=== PATIENT | female | born 1980 | race Caucasian/White ===

== ENCOUNTER 2019-10-15 11:31 | Outpatient (CLI) | payer OTHER ==
--- NOTE | 2019-10-15 11:47 | RAD ---
XR Foot Lt 3 View STANDARD INDICATION: 39-year-old female with left foot pain COMPARISON: None. FINDINGS: Bones: There is a mildly displaced fracture involving the left fourth digit proximal phalangeal shaft . There is a bifid tibial great toe sesamoid. Joints: Joints spaces appear preserved. Lisfranc alignment: Lisfranc alignment appears within normal limits. Soft tissues: No soft tissue injury demonstrated. No radiographic foreign body demonstrated. IMPRESSION: Fourth digit proximal phalangeal shaft fracture
== END 2019-10-15 11:32 | disposition home or self-care (01) ==
LOC: RAD-FRANK 11:31
PROVIDERS: ATTEND Internal Medicine
DX: S99.922A Unspecified injury of left foot, initial encounter (principal); S92.512A Displaced fracture of proximal phalanx of left lesser toe(s), initial encounter for closed fracture

== ENCOUNTER 2023-04-23 13:27 | Emergency (ER) | payer OTHER ==
[2023-04-23 15:47] LABS: Bacteria/HPF 3+ HPF (None Seen); Bilirubin Negative (Negative); Blood, Urine Negative (Negative); CAUTI Indications for Culture Pelvic or flank pain; Clarity Clear (Clear); Glucose, Urine (Dipstick) Normal (Negative); Ketone, Urine Negative (Negative); Leukocyte 250 Leu/uL (Negative); Nitrite 2+ (Negative); Protein, Urine (Dipstick) Negative (Neg-Trace); RBC/HPF 0-3 HPF (0-3); Specific Gravity, Urine 1.017 (1.002-1.036); Urobilinogen Normal mg/dL (Less than 2); WBC/HPF 21-50 HPF (0-3)
[2023-04-23 15:56] LABS: Urine Culture Reflex Yes Yes
[2023-04-23] MEDS ORDERED: Ketorolac Tromethamine 30 MG/ML VIAL ONE (15:56)
[2023-04-23] MEDS ORDERED: Dexameth. Sod Phosp. 10 MG/ML (CHEMO USE ONLY) ONE (15:56)
== END 2023-04-23 17:04 | disposition home or self-care (01) ==
LOC: ERS 13:27
DX: S39.012A Strain of muscle, fascia and tendon of lower back, initial encounter (principal); N39.0 Urinary tract infection, site not specified; F17.210 Nicotine dependence, cigarettes, uncomplicated; X50.1XXA Overexertion from prolonged static or awkward postures, initial encounter
CPT/HCPCS: 81001; 87077; 87086; 87186; 96372; 96374; J1100; J1885

== ENCOUNTER 2023-04-27 18:27 | Emergency (ER) | payer OTHER ==
[2023-04-27] MEDS ORDERED: Ketorolac Tromethamine 30 MG/ML VIAL ONE (19:05)
[2023-04-27 19:23] LABS: Amphetamine Detected (NotDetected); Barbiturates Screen Not Detected (NotDetected); Benzodiazepine Screen Not Detected (NotDetected); Bilirubin Negative (Negative); Blood, Urine 3+ (Negative); CAUTI Indications for Culture Pelvic or flank pain; Clarity Clear (Clear); Cocaine Metabolite Screen Detected (NotDetected); Glucose, Urine (Dipstick) 50 mg/dL (Negative); Ketone, Urine Negative (Negative); Leukocyte 75 Leu/uL (Negative); Methadone Not Detected (NotDetected); Methamphetamine Detected (NotDetected); Mucous/LPF Rare LPF (<2+); Nitrite Negative (Negative); Opiate Screen Not Detected (NotDetected); Oxycodone Screen Not Detected (NotDetected); Phencyclidine (PCP) Not Detected (NotDetected); Protein, Urine (Dipstick) Negative (Neg-Trace); RBC/HPF 0-3 HPF (0-3); Specific Gravity, Urine 1.008 (1.002-1.036); Squamous Epithelial 0-3 HPF (0-3); THC/Cannabinoid Screen Detected (NotDetected); Tricyclic Screen Not Detected (NotDetected); Urobilinogen Normal mg/dL (Less than 2)
[2023-04-27 19:40] LABS: Bacteria/HPF 1+ HPF (None Seen)
[2023-04-27 19:41] LABS: Urine Culture Reflex No No
[2023-04-27 20:03] LABS: #Eosinphils 0.3 thou/uL (0.0-0.7); #Monocytes 0.7 thou/uL (0.11-0.59); #Neutrophils 4.5 thou/uL (1.40-6.50); %Basophils 0.4 % (0.0-1.0); %Eosinophils 3.9 % (0.0-10.0); %Neutrophils 61.4 % (42.0-75.0); Hematocrit 30.7 % (36.0-47.0); Hemoglobin 9.7 g/dL (12.0-16.0); Mean Corpuscular HGB CONC 31.6 g/dL (32.0-36.0); Mean Corpuscular Hemoglobin 24.1 pg (27.0-31.0); Mean Corpuscular Volume 76.2 fl (78.0-98.0); Mean Platelet Volume 10.7 fL (7.4-10.4); Platelet Count 213 10x3/uL (130-400); RBC Distribution Width 15.1 % (11.5-14.5); Red Blood Cell (RBC) Count 4.03 mill/uL (4.20-5.40); White Blood Cell (WBC) Count 7.3 10x3/uL (4.8-10.8)
[2023-04-27 20:25] LABS: ALT (SGPT) 16 U/L (8-55); AST (SGOT) 11 U/L (5-34); Alkaline Phosphatase 75 U/L (40-110); Anion Gap 14 mmol/L (10-20); BUN (Urea Nitrogen) 16 mg/dL (7.0-18.7); Bilirubin, Total 0.3 mg/dL (0.2-1.2); CK (CPK) 168 U/L (29-168); Calc. Creatinine Clearance 0 mL/min (70-130); Calcium 9.4 mg/dL (7.8-10.44); Carbon Dioxide 28 mmol/L (22-29); Chloride 97 mmol/L (98-107); Estimated GFR 63; Globulin 3.4 g/dL (2.4-3.5); Glucose 248 mg/dL (70-105); Potassium 3.6 mmol/L (3.5-5.1); Protein, Total 7.4 g/dL (6.0-8.3); Sodium 135 mmol/L (136-145)
== END 2023-04-27 20:33 | disposition home or self-care (01) ==
LOC: ERS 18:27
DX: R25.2 Cramp and spasm (principal); F14.10 Cocaine abuse, uncomplicated; F15.10 Other stimulant abuse, uncomplicated; F12.10 Cannabis abuse, uncomplicated
CPT/HCPCS: 36415; 80053; 80306; 81001; 82550; 85025; 96372; 99283; J1885

== ENCOUNTER 2023-08-27 14:12 | Inpatient (IN) | payer OTHER ==
[~2023-08-27 14:12] MED LIST: Iopamidol-370 76% 500 ML MDV (1 ML CHARGE) ONE
[2023-08-27] MEDS ORDERED: Acetaminophen 500 MG TAB ONE (14:50)
[2023-08-27 15:19] LABS: #Eosinphils 0.2 thou/uL (0.0-0.7); #Monocytes 0.8 thou/uL (0.11-0.59); #Neutrophils 10.8 thou/uL (1.40-6.50); %Basophils 0.3 % (0.0-1.0); %Eosinophils 1.5 % (0.0-10.0); %Lymphocytes 8.8 % (21.0-51.0); %Monocytes 5.8 % (0.0-10.0); Hematocrit 26.6 % (36.0-47.0); Mean Corpuscular HGB CONC 30.1 g/dL (32.0-36.0); Mean Corpuscular Hemoglobin 24.2 pg (27.0-31.0); Mean Corpuscular Volume 80.4 fl (78.0-98.0); Mean Platelet Volume 10.8 fL (7.4-10.4); Platelet Count 260 10x3/uL (130-400); Red Blood Cell (RBC) Count 3.31 mill/uL (4.20-5.40)
[2023-08-27 15:45] LABS: Troponin I Less than 0.010 ng/mL (< 0.028)
[2023-08-27 15:46] LABS: ALT (SGPT) 12 U/L (8-55); AST (SGOT) 14 U/L (5-34); Albumin 3.3 g/dL (3.5-5.0); Alkaline Phosphatase 95 U/L (40-110); Anion Gap 16 mmol/L (10-20); BUN (Urea Nitrogen) 11 mg/dL (7.0-18.7); Bilirubin, Total 0.3 mg/dL (0.2-1.2); Calc. Creatinine Clearance 0 mL/min (70-130); Calcium 8.2 mg/dL (7.8-10.44); Carbon Dioxide 19 mmol/L (22-29); Chloride 106 mmol/L (98-107); Estimated GFR 90; Globulin 2.9 g/dL (2.4-3.5); Glucose 300 mg/dL (70-105); Potassium 4.8 mmol/L (3.5-5.1); Protein, Total 6.2 g/dL (6.0-8.3); Sodium 136 mmol/L (136-145)
[2023-08-27 16:22] LABS: Actual Bicarbonate (HCO3v) 22.3 mEq/L (22-28); Base Excess -2.4 mEq/L (-2.0 to +3.0); Calcium, Ionized (venous) 1.04 mmol/L (1.16-1.32); Chloride (VBG) 104 mmol/L (98-106); Hematocrit-VBG 26 % (36.0-47.0); Hemoglobin (Hb) 8.8 g/dL (11.7-15.5); Potassium (VBG) 4.71 mmol/L (3.70-5.30); Sodium 135 mmol/L (133-146); pH (venous) 7.391 (7.32-7.43)
[2023-08-27] MEDS ORDERED: Ondansetron PF 4 MG/2 ML Vial ONE (16:49)
[2023-08-27] MEDS ORDERED: Morphine 4 MG/ML VIAL ONE (16:49)
[2023-08-27 16:52] LABS: BHCG - Serum Negative (NEGATIVE); Pregs Control Background? CLEAR/WHITE (CLR/WHITE); Pregs Control Bar Appear? YES (CONTROL BAR)
[2023-08-27] MEDS ORDERED: LORazepam 2 MG/ML SYR.(CARPUJECT) ONE ×2 (17:57→21:53)
[2023-08-27] MEDS ORDERED: fentaNYL 50 mcg/mL 1 mL Vial ONE (19:51)
[2023-08-27] MEDS ORDERED: Ketamine In 0.9 % NaCl 50 MG/5 ML SYRINGE ONE (22:35)
[2023-08-28 01:09] LABS: Acetaminophen Less than 10 mcg/mL (10.0-30.0); Alcohol Less than 10.0 mg/dL (Less than 10); Salicylate Less than 8.0 mg/dL (15.0-30.0)
[2023-08-28] MEDS: Lactated Ringer's 1,000 ML IV SCH ×2 (01:53→11:41)
[2023-08-28 03:55] VITALS: BMI 38.4
[2023-08-28] MEDS ORDERED: Ketamine In 0.9 % NaCl 50 MG/5 ML SYRINGE ONE (04:18)
[2023-08-28] MEDS ORDERED: Ondansetron PF 4 MG/2 ML Vial IVP PRN (06:17)
[2023-08-28] MEDS ORDERED: HumaLOG 300 UNITS/3 ML VIAL SC PRN ×2 (06:17→18:06)
[2023-08-28] MEDS ORDERED: Dextrose 50% Abboject 50 ML SYRINGE SLOW IVP PRN (06:17)
[2023-08-28] MEDS ORDERED: Morphine 2 MG/ML VIAL SLOW IVP PRN (06:17)
[2023-08-28] MEDS ORDERED: Glucagon 1 MG/ML KIT IM PRN (06:17)
[2023-08-28] MEDS ORDERED: Dextrose 5% in Water 1,000 ML IV PRN (06:17)
[2023-08-28] MEDS ORDERED: hydrALAZINE 20 MG/ML VIAL SLOW IVP PRN (06:17)
[2023-08-28] MEDS ORDERED: Ketorolac Tromethamine 30 MG (1 mL) VIAL IVP SCH (06:30)
[2023-08-28 06:40] LABS: #Eosinphils 0.2 thou/uL (0.0-0.7); #Monocytes 0.6 thou/uL (0.11-0.59); #Neutrophils 6.4 thou/uL (1.40-6.50); %Basophils 0.2 % (0.0-1.0); %Eosinophils 1.9 % (0.0-10.0); %Lymphocytes 12.9 % (21.0-51.0); %Monocytes 7.7 % (0.0-10.0); %Neutrophils 76.9 % (42.0-75.0); Hematocrit 21.6 % (36.0-47.0); Hemoglobin 6.6 g/dL (12.0-16.0); Mean Corpuscular HGB CONC 30.6 g/dL (32.0-36.0); Mean Corpuscular Hemoglobin 24.1 pg (27.0-31.0); Mean Corpuscular Volume 78.8 fl (78.0-98.0); Mean Platelet Volume 10.1 fL (7.4-10.4); Platelet Count 199 10x3/uL (130-400); RBC Distribution Width 15.5 % (11.5-14.5); Red Blood Cell (RBC) Count 2.74 mill/uL (4.20-5.40); White Blood Cell (WBC) Count 8.3 10x3/uL (4.8-10.8)
[2023-08-28 06:53] LABS: Hemoglobin A1c 7.2 % (4.0-6.0)
[2023-08-28 06:57] LABS: INR-International Normal Ratio 1.2; Prothrombin Time 14.8 sec (12.0-14.7)
[2023-08-28 07:05] LABS: ALT (SGPT) 10 U/L (8-55); AST (SGOT) 9 U/L (5-34); Albumin 3.5 g/dL (3.5-5.0); Alkaline Phosphatase 108 U/L (40-110); Anion Gap 9 mmol/L (10-20); BUN (Urea Nitrogen) 12 mg/dL (7.0-18.7); Bilirubin, Total 0.3 mg/dL (0.2-1.2); Calc. Creatinine Clearance 161 mL/min (70-130); Calcium 8.3 mg/dL (7.8-10.44); Carbon Dioxide 26 mmol/L (22-29); Chloride 105 mmol/L (98-107); Estimated GFR 89; Globulin 2.7 g/dL (2.4-3.5); Glucose 203 mg/dL (70-105); Potassium 4.6 mmol/L (3.5-5.1); Protein, Total 6.2 g/dL (6.0-8.3); Sodium 135 mmol/L (136-145)
[2023-08-28] MEDS ORDERED: Acetaminophen 500 MG TAB ONE (08:14)
[2023-08-28] MEDS ORDERED: Ketorolac Tromethamine 30 MG (1 mL) VIAL ONE (08:14)
[2023-08-28] MEDS ORDERED: Pantoprazole 40 MG VIAL ONE (08:15)
[2023-08-28] MEDS ORDERED: Magnesium Citrate 300 ML BOT PO SCH (09:15)
[2023-08-28] MEDS ORDERED: Polyethylene Glycol 3350 17 GM Packet ONE (09:18)
[2023-08-28] MEDS ORDERED: Magnesium Citrate 300 ML BOT ONE (09:18)
[2023-08-28] MEDS: Pantoprazole 40 MG VIAL IVP SCH (09:23)
[2023-08-28] MEDS: Acetaminophen 500 MG TAB PO SCH ×4 (09:24→21:03)
[2023-08-28] MEDS: Polyethylene Glycol 3350 17 GM Packet PO SCH ×2 (09:25→21:02)
[2023-08-28] MEDS: 1/2 NS w/Potassium 20 mEq 1,000 ML IV SCH ×2 (09:31→12:38)
[2023-08-28] MEDS: Methylcellulose 500 MG TAB PO SCH ×2 (11:42→21:02)
[2023-08-28] MEDS: traMADol HCl 50 MG TAB PO PRN (13:16)
[2023-08-28 16:28] LABS: #Eosinphils 0.2 thou/uL (0.0-0.7); #Monocytes 0.6 thou/uL (0.11-0.59); #Neutrophils 4.9 thou/uL (1.40-6.50); %Basophils 0.3 % (0.0-1.0); %Eosinophils 2.6 % (0.0-10.0); %Lymphocytes 18.1 % (21.0-51.0); %Monocytes 8.1 % (0.0-10.0); %Neutrophils 70.5 % (42.0-75.0); Hematocrit 22.2 % (36.0-47.0); Mean Corpuscular HGB CONC 31.5 g/dL (32.0-36.0); Mean Corpuscular Hemoglobin 25.1 pg (27.0-31.0); Mean Corpuscular Volume 79.6 fl (78.0-98.0); Mean Platelet Volume 10.7 fL (7.4-10.4); Platelet Count 202 10x3/uL (130-400); RBC Distribution Width 15.3 % (11.5-14.5); Red Blood Cell (RBC) Count 2.79 mill/uL (4.20-5.40); White Blood Cell (WBC) Count 6.9 10x3/uL (4.8-10.8)
[2023-08-28] MEDS ORDERED: metFORMIN 500 MG TAB PO SCH (18:15)
[2023-08-28] MEDS ORDERED: hydrOXYzine 25 MG TAB PO PRN (19:18)
[2023-08-28] MEDS ORDERED: Famotidine 20 MG TAB PO SCH (21:00)
[2023-08-28] MEDS: hydrOXYzine 25 MG TAB PO SCH (21:02)
[2023-08-28] MEDS: Enoxaparin 40 MG (0.4 mL) SYRINGE SC SCH (21:02)
[2023-08-29] MEDS: 1/2 NS w/Potassium 20 mEq 1,000 ML IV SCH ×3 (01:10→14:54)
[2023-08-29] MEDS: Morphine 4 MG/ML VIAL SLOW IVP PRN (03:23)
[2023-08-29 07:01] LABS: #Eosinphils 0.2 thou/uL (0.0-0.7); #Monocytes 0.5 thou/uL (0.11-0.59); #Neutrophils 3.9 thou/uL (1.40-6.50); %Basophils 0.3 % (0.0-1.0); %Lymphocytes 21.2 % (21.0-51.0); %Monocytes 8.4 % (0.0-10.0); %Neutrophils 66.6 % (42.0-75.0); Hematocrit 22.3 % (36.0-47.0); Mean Corpuscular HGB CONC 31.4 g/dL (32.0-36.0); Mean Corpuscular Hemoglobin 25.1 pg (27.0-31.0); Mean Corpuscular Volume 79.9 fl (78.0-98.0); Mean Platelet Volume 10.8 fL (7.4-10.4); Platelet Count 187 10x3/uL (130-400); RBC Distribution Width 15.6 % (11.5-14.5); Red Blood Cell (RBC) Count 2.79 mill/uL (4.20-5.40); White Blood Cell (WBC) Count 5.9 10x3/uL (4.8-10.8)
[2023-08-29 07:19] LABS: ALT (SGPT) 11 U/L (8-55); AST (SGOT) 11 U/L (5-34); Albumin 3.3 g/dL (3.5-5.0); Alkaline Phosphatase 101 U/L (40-110); Anion Gap 10 mmol/L (10-20); BUN (Urea Nitrogen) 13 mg/dL (7.0-18.7); Bilirubin, Total 0.5 mg/dL (0.2-1.2); Calc. Creatinine Clearance 169 mL/min (70-130); Calcium 8.4 mg/dL (7.8-10.44); Carbon Dioxide 28 mmol/L (22-29); Cardiac Risk 3.8 (Less than 4.5); Chloride 103 mmol/L (98-107); Cholesterol 123 mg/dl (< 200 Desired); Estimated GFR 95; Globulin 2.7 g/dL (2.4-3.5); Glucose 148 mg/dL (70-105); HDL Cholesterol 32 mg/dL (>60 Neg Risk); LDL Cholesterol, Calculated 52 mg/dL; Potassium 4.1 mmol/L (3.5-5.1); Sodium 137 mmol/L (136-145); Triglycerides 193 mg/dL (Less than 150)
[2023-08-29] MEDS ORDERED: FLU VACC QS2023-24(6MOS UP)/PF 60 MCG/0.5 ML SYRINGE IM ONE (09:00)
[2023-08-29] MEDS: Acetaminophen 500 MG TAB PO SCH ×4 (09:11→20:55)
[2023-08-29] MEDS: Ketorolac Tromethamine 30 MG (1 mL) VIAL IVP PRN (09:12)
[2023-08-29] MEDS: Polyethylene Glycol 3350 17 GM Packet PO SCH ×2 (09:12→20:55)
[2023-08-29] MEDS: metFORMIN 500 MG TAB PO SCH ×2 (09:12→17:06)
[2023-08-29] MEDS: Pantoprazole 40 MG VIAL IVP SCH (09:12)
[2023-08-29] MEDS: Methylcellulose 500 MG TAB PO SCH ×2 (09:21→22:13)
[2023-08-29] MEDS: traMADol HCl 50 MG TAB PO PRN ×2 (12:42→20:56)
[2023-08-29] MEDS: Lactulose 20 GM (30 mL) UDCUP PO SCH ×2 (14:53→20:55)
[2023-08-29] MEDS ORDERED: FLUoxetine HCl 20 MG CAP PO SCH (15:15)
[2023-08-29] MEDS ORDERED: Mineral Oil ENEMA PR SCH (15:15)
[2023-08-29] MEDS ORDERED: Naloxegol 12.5 MG TAB PO SCH (15:30)
[2023-08-29 17:54] LABS: #Eosinphils 0.2 thou/uL (0.0-0.7); #Monocytes 0.6 thou/uL (0.11-0.59); #Neutrophils 3.7 thou/uL (1.40-6.50); %Basophils 0.5 % (0.0-1.0); %Eosinophils 3.4 % (0.0-10.0); %Lymphocytes 21.5 % (21.0-51.0); %Monocytes 9.9 % (0.0-10.0); %Neutrophils 64.3 % (42.0-75.0); Hematocrit 22.9 % (36.0-47.0); Mean Corpuscular HGB CONC 30.6 g/dL (32.0-36.0); Mean Corpuscular Hemoglobin 25.3 pg (27.0-31.0); Mean Platelet Volume 10.7 fL (7.4-10.4); Platelet Count 153 10x3/uL (130-400); RBC Distribution Width 15.7 % (11.5-14.5); Red Blood Cell (RBC) Count 2.77 mill/uL (4.20-5.40); White Blood Cell (WBC) Count 5.7 10x3/uL (4.8-10.8)
[2023-08-29 19:56] LABS: Mean Corpuscular Volume 82.7 fl (78.0-98.0)
[2023-08-29] MEDS: Enoxaparin 40 MG (0.4 mL) SYRINGE SC SCH (20:55)
[2023-08-29] MEDS: hydrOXYzine 25 MG TAB PO SCH (20:56)
[2023-08-29] MEDS: Ondansetron ODT 4 MG TAB PO PRN (22:13)
[2023-08-30] MEDS: 1/2 NS w/Potassium 20 mEq 1,000 ML IV SCH ×4 (01:56→22:26)
[2023-08-30] MEDS: traMADol HCl 50 MG TAB PO PRN ×3 (03:38→18:08)
[2023-08-30 05:09] LABS: #Eosinphils 0.2 thou/uL (0.0-0.7); #Monocytes 0.6 thou/uL (0.11-0.59); #Neutrophils 5.4 thou/uL (1.40-6.50); %Basophils 0.3 % (0.0-1.0); %Eosinophils 2.4 % (0.0-10.0); %Lymphocytes 11.6 % (21.0-51.0); %Monocytes 8.9 % (0.0-10.0); %Neutrophils 76.2 % (42.0-75.0); Hematocrit 23.3 % (36.0-47.0); Hemoglobin 7.1 g/dL (12.0-16.0); Mean Corpuscular HGB CONC 30.5 g/dL (32.0-36.0); Mean Corpuscular Hemoglobin 24.3 pg (27.0-31.0); Mean Platelet Volume 10.1 fL (7.4-10.4); Platelet Count 174 10x3/uL (130-400); RBC Distribution Width 15.8 % (11.5-14.5); Red Blood Cell (RBC) Count 2.92 mill/uL (4.20-5.40); White Blood Cell (WBC) Count 7.1 10x3/uL (4.8-10.8)
[2023-08-30 05:13] LABS: Mean Corpuscular Volume 79.8 fl (78.0-98.0)
[2023-08-30 05:43] LABS: Free T4 (Free Thyroxine) 1.08 ng/dL (0.70-1.48)
[2023-08-30] MEDS: Ketorolac Tromethamine 30 MG (1 mL) VIAL IVP PRN ×3 (06:34→20:46)
[2023-08-30] MEDS: Naloxegol 12.5 MG TAB PO SCH (06:35)
[2023-08-30] MEDS: Acetaminophen 500 MG TAB PO SCH ×4 (08:59→20:40)
[2023-08-30] MEDS: Polyethylene Glycol 3350 17 GM Packet PO SCH ×2 (08:59→22:21)
[2023-08-30] MEDS: FLUoxetine HCl 20 MG CAP PO SCH (08:59)
[2023-08-30] MEDS: Pantoprazole 40 MG VIAL IVP SCH (08:59)
[2023-08-30] MEDS: metFORMIN 500 MG TAB PO SCH ×2 (08:59→18:08)
[2023-08-30] MEDS: Methylcellulose 500 MG TAB PO SCH ×2 (08:59→20:41)
[2023-08-30] MEDS: Lactulose 20 GM (30 mL) UDCUP PO SCH ×2 (08:59→16:32)
[2023-08-30] MEDS: Morphine 4 MG/ML VIAL SLOW IVP PRN (12:09)
[2023-08-30] MEDS ORDERED: Cyclobenzaprine 10 MG TAB PO PRN (14:33)
[2023-08-30] MEDS ORDERED: Cyclobenzaprine 10 MG TAB PO SCH (15:00)
[2023-08-30] MEDS: Enoxaparin 40 MG (0.4 mL) SYRINGE SC SCH (20:39)
[2023-08-30] MEDS: hydrOXYzine 25 MG TAB PO SCH (20:40)
[2023-08-31] MEDS: traMADol HCl 50 MG TAB PO PRN ×3 (05:48→21:20)
[2023-08-31] MEDS: Acetaminophen 500 MG TAB PO SCH ×4 (08:55→21:03)
[2023-08-31] MEDS: Methylcellulose 500 MG TAB PO SCH ×2 (08:55→21:04)
[2023-08-31] MEDS: Naloxegol 12.5 MG TAB PO SCH (08:55)
[2023-08-31] MEDS: Polyethylene Glycol 3350 17 GM Packet PO SCH ×2 (08:56→21:03)
[2023-08-31] MEDS: FLUoxetine HCl 20 MG CAP PO SCH (08:56)
[2023-08-31] MEDS: Pantoprazole 40 MG VIAL IVP SCH (08:56)
[2023-08-31] MEDS: metFORMIN 500 MG TAB PO SCH ×2 (08:56→18:01)
[2023-08-31] MEDS: Ondansetron ODT 4 MG TAB PO PRN ×2 (09:03→17:05)
[2023-08-31 09:13] LABS: #Eosinphils 0.1 thou/uL (0.0-0.7); #Monocytes 0.6 thou/uL (0.11-0.59); #Neutrophils 6.5 thou/uL (1.40-6.50); %Basophils 0.1 % (0.0-1.0); %Eosinophils 0.9 % (0.0-10.0); %Lymphocytes 5.5 % (21.0-51.0); %Monocytes 7.2 % (0.0-10.0); %Neutrophils 85.9 % (42.0-75.0); Hematocrit 22.5 % (36.0-47.0); Mean Corpuscular HGB CONC 31.1 g/dL (32.0-36.0); Mean Corpuscular Hemoglobin 25.3 pg (27.0-31.0); Mean Corpuscular Volume 81.2 fl (78.0-98.0); Mean Platelet Volume 9.9 fL (7.4-10.4); Platelet Count 174 10x3/uL (130-400); RBC Distribution Width 16.1 % (11.5-14.5); Red Blood Cell (RBC) Count 2.77 mill/uL (4.20-5.40); White Blood Cell (WBC) Count 7.6 10x3/uL (4.8-10.8)
[2023-08-31] MEDS: 1/2 NS w/Potassium 20 mEq 1,000 ML IV SCH ×2 (15:04→21:24)
[2023-08-31] MEDS: Ketorolac Tromethamine 30 MG (1 mL) VIAL IVP PRN (17:05)
[2023-08-31] MEDS: hydrOXYzine 25 MG TAB PO SCH (21:04)
[2023-08-31] MEDS: Enoxaparin 40 MG (0.4 mL) SYRINGE SC SCH (21:04)
[2023-09-01] MEDS: Naloxegol 12.5 MG TAB PO SCH (06:31)
[2023-09-01] MEDS: traMADol HCl 50 MG TAB PO PRN (06:33)
[2023-09-01 07:34] VITALS: TEMP 97.8
[2023-09-01] MEDS: 1/2 NS w/Potassium 20 mEq 1,000 ML IV SCH (07:45)
[2023-09-01 08:02] LABS: Hematocrit 22.9 % (36.0-47.0); Hemoglobin 7.1 g/dL (12.0-16.0); Platelet Count 192 10x3/uL (130-400)
[2023-09-01] MEDS: FLUoxetine HCl 20 MG CAP PO SCH (09:32)
[2023-09-01] MEDS: metFORMIN 500 MG TAB PO SCH (09:32)
[2023-09-01] MEDS: Pantoprazole 40 MG VIAL IVP SCH (09:33)
[2023-09-01] MEDS: Methylcellulose 500 MG TAB PO SCH (09:33)
[2023-09-01] MEDS: Acetaminophen 500 MG TAB PO SCH (09:33)
[2023-09-01] MEDS: Polyethylene Glycol 3350 17 GM Packet PO SCH (09:33)
[2023-09-01 11:53] VITALS: BP 122/78
== END 2023-09-01 15:00 | disposition home or self-care (01) | DRG 812 ==
LOC: ERS 14:12 → ERHOLD 08-28 00:52 → SURG A 08-28 11:24
PROVIDERS: ADMIT Specialist; ATTEND Specialist
PROC: 4A043R1 Measurement of Venous Saturation, Peripheral, Percutaneous Approach (ICD-10-PCS; 2023-08-27)
PROC: 30233N1 Transfusion of Nonautologous Red Blood Cells into Peripheral Vein, Percutaneous Approach (ICD-10-PCS; principal; 2023-08-28)
DX: D62 Acute posthemorrhagic anemia (principal); S36.112A Contusion of liver, initial encounter; S02.85XA Fracture of orbit, unspecified, initial encounter for closed fracture; S22.43XA Multiple fractures of ribs, bilateral, initial encounter for closed fracture; S36.892A Contusion of other intra-abdominal organs, initial encounter; S36.039A Unspecified laceration of spleen, initial encounter; F33.9 Major depressive disorder, recurrent, unspecified; F15.90 Other stimulant use, unspecified, uncomplicated; E11.9 Type 2 diabetes mellitus without complications; S30.0XXA Contusion of lower back and pelvis, initial encounter; F12.90 Cannabis use, unspecified, uncomplicated; K21.9 Gastro-esophageal reflux disease without esophagitis; F17.210 Nicotine dependence, cigarettes, uncomplicated; K59.03 Drug induced constipation; T40.605A Adverse effect of unspecified narcotics, initial encounter; Z80.8 Family history of malignant neoplasm of other organs or systems; Z82.49 Family history of ischemic heart disease and other diseases of the circulatory system; Z83.3 Family history of diabetes mellitus; V69.9XXA Occupant (driver) (passenger) of heavy transport vehicle injured in unspecified traffic accident, initial encounter
CPT/HCPCS: 36415; 36416; 36430; 70498; 71045; 71275; 72125; 74177; 80053; 80061; 80307; 82805; 83036; 83605; 84439; 84443; 84481; 84484; 84703; 85014; 85018; 85025; 85049; 85610; 86850; 86900; 86901; 87040; 87149; 93005; 94760; C9113; J1650; J1885; J2060; J2270; J2405; J3010; J3480; J3490; J7120; P9016; Q0162; Q9967